=== PATIENT | female | born 1945 | race Caucasian/White ===

== ENCOUNTER 2019-02-20 14:24 | Outpatient (CLI) | payer MEDICARE, OTHER ==
--- NOTE | 2019-02-25 13:36 | Mammography Report ---
Reason: ROUTINE MAMMO Procedure Date: 02/20/2019 Accession Number: [id number] / [id number] Procedure: LAUREL - Screening Mammo w/Jose CPT Code: Final Report FULL RESULT: EXAM: Screening Mammo w/Jose DATE: 02/20/2019 3:12 PM CLINICAL HISTORY: Routine screening. Prior benign left breast biopsy twice. TECHNIQUE: (B) - Bilateral CC and MLO views were obtained. COMPARISON: 07/03/2017, 10/01/2015, 04/23/2014, 04/16/2013. PARENCHYMAL PATTERN: (A) - The breasts demonstrate scattered fibroglandular densities bilaterally. FINDINGS: No significant interval change. Stable nipple retraction left breast. There are no suspicious masses, calcifications, or areas of distortion. IMPRESSION: Negative examination. BI-RADS category 1. RECOMMENDATION: (ANNUAL) - Recommend routine annual screening mammography. BI-RADS CATEGORY: (1) - Negative. STANDARD QUALIFYING STATEMENTS: 1. This examination was not reviewed with the aid of Computer-Aided Detection (CAD). 2. A negative or benign imaging report should not preclude biopsy if clinically suspicious findings are present. 3. Dense breasts may obscure an underlying neoplasm. 4. This examination was reviewed with the aid of 3D breast imaging (tomosynthesis).
== END 2019-02-20 14:25 | disposition home or self-care (01) ==
LOC: DI 14:24
DX: Z12.31 Encounter for screening mammogram for malignant neoplasm of breast (principal)
CPT/HCPCS: 77063; 77067

== ENCOUNTER 2019-12-18 15:19 | Outpatient (CLI) | payer MEDICARE, OTHER ==
--- NOTE | 2019-12-18 16:21 | DEXA Report ---
PROCEDURE: Dexa Spine and/or Hip INDICATIONS: BONE DENSITY TECHNIQUE: Dual energy x-ray absorptiometry (DXA) was performed on a BumpTop System. Regions measur ed are the AP Spine, femoral neck, and if needed forearm. COMPARISON: None. FINDINGS: Lumbar Spine: Bone Mineral Density 0.989 g/cm/cm,T score -1.6, osteopenia Left Hip: Bone Mineral Density 0.781 g/cm/cm,T score -1.8, osteopenia Left Femoral Neck: Bone Mineral Density 0.702 g/cm/cm, T score -2.4, osteopenia (T score greater or equal to -1.0: NORMAL) (T score from -1.1 to -2.4: OSTEOPENIA) (T score less than or equal to -2.5 to: OSTEOPOROSIS) Impression: Osteopenia Patients with diagnosis of osteoporosis or osteopenia should have regular bone mineral density assess ment. For those eligible for Medicare, routine testing is allowed once every 2 years. Testing frequ ency can be increased for patients who have rapidly progressing disease or for those who are receivin g medical therapy to restore bone mass. Reviewed by: Maryjane Chowdhury MD, PhD on 12/18/2019 4:19 PM PDT Approved by: Maryjane Chowdhury MD, PhD on 12/18/2019 4:19 PM PDT Station ID: [id number]
== END 2019-12-18 15:20 | disposition home or self-care (01) ==
LOC: DI 15:19
PROVIDERS: ATTEND Physician Assistant
DX: M85.89 Other specified disorders of bone density and structure, multiple sites (principal)
CPT/HCPCS: 77080

== ENCOUNTER 2020-02-04 16:57 | Outpatient (CLI) | payer MEDICARE, OTHER ==
--- NOTE | 2020-02-04 18:07 | XRAY Report ---
PROCEDURE: Cervical Spine 2 View INDICATIONS: NECK PAIN TECHNIQUE: 4 view(s) of the cervical spine were acquired. COMPARISON: None. FINDINGS: Bones: No fractures or dislocations to the T1 level. Moderate degenerative change in the cervical s pine most pronounced at C5-C6 where there is loss of intervertebral disc space height, endplate scler osis, and posterior disc osteophyte complex. The lateral masses of C1 appear intact on the odontoid v iew. No suspicious bony lesions. Soft tissues: No prevertebral soft tissue swelling. IMPRESSION: Moderate degenerative change in the cervical spine most pronounced at C5-C6. Small posterior disc ost eophyte complex. If clinically indicated consider MRI cervical spine for further evaluation. Reviewed by: Kan Strickland MD on 02/04/2020 6:06 PM [facility] Approved by: Kan Strickland MD on 02/04/2020 6:06 PM [facility] Station ID: [id number]
== END 2020-02-04 16:58 | disposition home or self-care (01) ==
LOC: DI.S 16:57
PROVIDERS: ATTEND Nurse Practitioner Family
DX: M50.322 Other cervical disc degeneration at C5-C6 level (principal)
CPT/HCPCS: 72040

== ENCOUNTER 2020-02-06 12:28 | Outpatient (CLI) | payer MEDICARE, OTHER ==
--- NOTE | 2020-02-06 13:21 | CT Report ---
PROCEDURE: CERVICAL SPINE WO INDICATIONS: CERVICALGIA TECHNIQUE: Noncontrast 3 mm thick sections acquired from the skull base to the T4 level. Sagittal and coronal r eformats were then constructed. For radiation dose reduction, the following was used: automated exp osure control, adjustment of mA and/or kV according to patient size. COMPARISON: Cervical spine radiograph dated 02/04/2020. FINDINGS: Image quality: Excellent. Bones: Grade 1 anterolisthesis of C4 on C5 is seen. Straightening and mild reversal of normal cervic al lordosis is also noted. No fractures or dislocations. Degenerative endplate changes and bilateral facet hypertrophic changes are noted at C4-5, C5-6 and C6-7 levels. There is suggestion of broad-bas ed disc bulge at C4-5 and C5-6 levels causing mild central canal stenosis, no significant neural fora arti narrowing. Visualized superior ribs are intact. Soft tissues: Prevertebral soft tissues are normal in thickness. No paravertebral hematomas. No ap ical pneumothoraces. IMPRESSION: 1. No cervical spine fracture or dislocation. Grade 1 anterolisthesis of C4 on C5. 2. Degenerative disc bulge and bilateral facet hypertrophic changes at C4-5 to C6-7 levels causing mi ld central canal stenosis, no significant neural foraminal narrowing. Reviewed by: Stanton Barnes MD on 02/06/2020 1:19 PM PST Approved by: Stanton Barnes MD on 02/06/2020 1:19 PM PST Station ID: [id number]
== END 2020-02-06 12:29 | disposition home or self-care (01) ==
LOC: DI 12:28
PROVIDERS: ATTEND Nurse Practitioner Family
DX: M43.12 Spondylolisthesis, cervical region (principal); M47.812 Spondylosis without myelopathy or radiculopathy, cervical region; M50.321 Other cervical disc degeneration at C4-C5 level; M48.02 Spinal stenosis, cervical region
CPT/HCPCS: 72125

== ENCOUNTER 2020-04-06 10:01 | Outpatient (CLI) | payer MEDICARE, OTHER ==
--- NOTE | 2020-04-06 10:37 | XRAY Report ---
PROCEDURE: Wrist 4 View LT INDICATIONS: PAIN IN LEFT WRIST TECHNIQUE: 4 views of the wrist were acquired. COMPARISON: None FINDINGS: Bones: Markedly comminuted, impacted distal radius fracture with mild displacement, involving the art icular surface. Ulnar styloid avulsion. 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 No suspicious bony lesions. Scaphoid view: Scaphoid intact. Soft tissues: No suspicious soft tissue calcifications. IMPRESSION: Markedly comminuted, impacted distal radius fracture with mild displacement, involving the articular surface. Associated ulnar styloid avulsion. Reviewed by: Aldair Adams MD on 04/06/2020 10:36 AM [facility] Approved by: Aldair Adams MD on 04/06/2020 10:36 AM PST Station ID: [id number]
== END 2020-04-06 23:59 | disposition home or self-care (01) ==
LOC: DI.S 10:01
PROVIDERS: ATTEND Physician Assistant
DX: S52.592A Other fractures of lower end of left radius, initial encounter for closed fracture (principal)

== ENCOUNTER 2020-05-20 07:00 | Outpatient (CLI) | payer MEDICARE, OTHER ==
--- NOTE | 2020-05-20 13:54 | XRAY Report ---
PROCEDURE: Wrist 3 View LT INDICATIONS: LEFT WRIST COLLES FRACTURE TECHNIQUE: 3 views of the wrist were acquired. COMPARISON: 04/06/2020 x-ray examination FINDINGS: Bones: No change in comminuted impacted distal radial fracture which demonstrates mild posterior ang ulation. Mildly displaced ulnar styloid fracture is present, as before.. No suspicious bony lesions. Scaphoid view: Not requested Soft tissues: No suspicious soft tissue calcifications. IMPRESSION: No change in distal radial and ulnar fractures. Reviewed by: Charbel Ray MD on 05/20/2020 1:53 PM PST Approved by: Charbel Ray MD on 05/20/2020 1:53 PM [facility] Station ID: [id number]
== END 2020-05-20 23:59 | disposition home or self-care (01) ==
LOC: DI.N 07:00
PROVIDERS: ATTEND Orthopaedic Surgery
DX: S52.532A Colles' fracture of left radius, initial encounter for closed fracture (principal)

== ENCOUNTER 2020-11-29 10:46 | Outpatient (CLI) | payer MEDICARE, OTHER ==
[2020-11-29 11:21] LABS: BASOPHILS % (AUTO) 0.2 %; EOSINOPHILS # (AUTO) 0.1 10^3/uL (0.0-0.7); EOSINOPHILS % (AUTO) 1.1 %; HCT - HEMATOCRIT 45.7 % (37.0-47.0); HGB - HEMOGLOBIN 14.8 g/dL (12.0-16.0); MEAN CORPUSCULAR HEMOGLOBIN 29.3 pg (27.0-31.0); MEAN CORPUSCULAR HGB CONC 32.4 g/dL (32.0-36.0); MEAN CORPUSCULAR VOLUME 90.5 fL (81.0-99.0); MEAN PLATELET VOLUME 11.6 fL (7.9-10.8); MONOCYTES # (AUTO) 0.8 10^3/uL (0.0-1.0); MONOCYTES % (AUTO) 8.4 %; NEUTROPHILS % (AUTO) 45.1 %; PLT - PLATELET COUNT 237 10^3/uL (130-450); RED BLOOD COUNT 5.05 10^6/uL (4.20-5.40); RED CELL DISTRIBUTION WIDTH 12.6 % (12.0-15.0)
[2020-11-29 11:51] LABS: ALBUMIN 4.4 g/dL (3.2-5.5); ALBUMIN/GLOBULIN RATIO 1.5 (1.0-2.2); ALKALINE PHOSPHATASE 50 IU/L (42-121); ALT ALANINE AMINOTRANSFERASE 16 IU/L (10-60); AST ASPARTATE AMINOTRANSFERASE 17 IU/L (10-42); BILIRUBIN,TOTAL 0.4 mg/dL (0.2-1.0); BUN - BLOOD UREA NITROGEN 11 mg/dL (6-20); CALCIUM 9.4 mg/dL (8.5-10.3); CARBON DIOXIDE - CO2 28 mmol/L (21-32); CHLORIDE 103 mmol/L (101-111); CHOL/HDL RATIO 4.6 (<4.4); CHOLESTEROL 250 mg/dL; CREATININE 0.7 mg/dL (0.4-1.0); GFR - MDRD 82 (>89); GLUCOSE 98 mg/dL (70-100); HDL CHOLESTEROL 54 mg/dL; LDL CHOLESTEROL,CALCULATED 170 mg/dL; LDL/HDL RATIO 3.1 (<4.4); POTASSIUM 4.3 mmol/L (3.5-5.0); SODIUM 139 mmol/L (135-145); TOTAL PROTEIN 7.3 g/dL (6.7-8.2); TRIGLYCERIDES 132 mg/dL; VLDL CHOLESTEROL 26 mg/dL
--- NOTE | 2020-12-01 15:04 | Mammography Report ---
BILATERAL DIGITAL SCREENING MAMMOGRAM 3D/2D: 11/29/2020 CLINICAL: Routine screening. Comparison is made to exams dated: 02/20/2019 mammogram - , 07/03/2017 ma mmogram, 04/03/2012 ultrasound, 04/03/2012 mammogram, 03/29/2012 mammogram, and 01/18/2011 ultrasound - [facility]. The tissue of both breasts is predominantly fatty. There is an asymmetry with fine calcifications in the right breast middle depth inferior region seen on the mediolateral oblique view only. No other significant masses, calcifications, or other findings are seen in either breast. IMPRESSION: INCOMPLETE: NEEDS ADDITIONAL IMAGING EVALUATION The asymmetry in the right breast is indeterminate. Additional views with possible ultrasound are re commended. This exam was interpreted at Station ID: [id number]. NOTE: For mammograms, a report in lay terms will be sent to the patient. Approximately 15% of breast malignancies will not be visualized mammographically. In the management of a palpable breast mass, a negative mammogram must not discourage biopsy of a clinically suspicious lesion. Electronically Signed By: Robert Mackey M.D., jr/ivette:11/30/2020 08:20:52 ACR BI-RADS Category 0: Incomplete 3340F PARENCHYMAL PATTERN: (F) - The breast(s) demonstrate(s) diffuse fatty replacement. BI-RADS CATEGORY: (0) - 0 Mammo and US [id number] Immediate follow-up LATERALITY: (B)
== END 2020-11-29 10:47 | disposition home or self-care (01) ==
LOC: DI 10:46
PROVIDERS: ATTEND Internal Medicine
DX: Z12.31 Encounter for screening mammogram for malignant neoplasm of breast (principal); R92.8 Other abnormal and inconclusive findings on diagnostic imaging of breast
CPT/HCPCS: 36415; 80053; 80061; 83721; 84443; 85025

== ENCOUNTER 2020-12-29 10:21 | Outpatient (CLI) | payer MEDICARE, OTHER ==
--- NOTE | 2020-12-30 09:57 | Ultrasound Report ---
LIMITED ULTRASOUND OF RIGHT BREAST: 12/29/2020 CLINICAL: Patient returns today to evaluate a focal asymmetry in the left breast. Patient returns tod ay to evaluate a focal asymmetry in the right breast. Comparison is made to exams dated: 12/29/2020 mammogram, 11/29/2020 mammogram, 02/20/2019 mammogram - [facility], 07/03/2017 mammogram, 04/03/2012 ultrasound, and 04/03/2012 mammogram - [facility]. Color flow and real-time ultrasound of the right breast 6 o'clock region were performed. Lynch scale images of the real-time examination were reviewed. No abnormality which corresponds with the mammographic abnormality is seen. IMPRESSION: NEGATIVE There is no sonographic evidence of malignancy. There is no abnormality seen in the right breast to correspond with the screening mammography finding at 6 o'clock. A 1 year screening mammogram is recommended. This exam was interpreted at Station ID: [id number]. Electronically Signed By: Lalo Lou acr/:12/29/2020 11:55:03 Ultrasound BI-RADS: 1 Negative BI-RADS CATEGORY: (1) - 1 RECOMMENDATION: (ANNUAL) - Recommend routine annual screening mammography. [id number] 1 year screening LATERALITY: (B)
--- NOTE | 2020-12-30 09:57 | Mammography Report ---
UNILATERAL RIGHT DIGITAL DIAGNOSTIC MAMMOGRAM 3D/2D: 12/29/2020 CLINICAL: Patient returns for magnification views of microcalcifications in the right breast. Comparison is made to exams dated: 11/29/2020 mammogram, 02/20/2019 mammogram - [facility], 07/03/2017 mammogram, 04/03/2012 ultrasound, 04/03/2012 mammogram, and 03/29/2012 mammogram - [facility]. The tissue of right breast is predominantly fatty. There is an asymmetry in the right breast middle depth inferior region seen on the mediolateral obliq ue view only. This is not seen in additional views. This is less prominent. No other significant masses or calcifications are seen in the breast. IMPRESSION: INCOMPLETE: NEEDS ADDITIONAL IMAGING EVALUATION The asymmetry in the right breast is indeterminate. An ultrasound is recommended. This exam was interpreted at Station ID: [id number]. NOTE: For mammograms, a report in lay terms will be sent to the patient. Approximately 15% of breast malignancies will not be visualized mammographically. In the management of a palpable breast mass, a negative mammogram must not discourage biopsy of a clinically suspicious lesion. Electronically Signed By: Lalo Lou acr/penrad:12/29/2020 11:53:57 ACR BI-RADS Category 0: Incomplete 3340F PARENCHYMAL PATTERN: (F) - The breast(s) demonstrate(s) diffuse fatty replacement. BI-RADS CATEGORY: (0) - 0 Ultrasound [id number] Immediate follow-up LATERALITY: (R)
== END 2020-12-29 10:22 | disposition home or self-care (01) ==
LOC: DI 10:21
PROVIDERS: ATTEND Internal Medicine
DX: R92.8 Other abnormal and inconclusive findings on diagnostic imaging of breast (principal)

== ENCOUNTER 2021-11-22 10:20 | Outpatient (CLI) | payer MEDICARE, OTHER ==
[2021-11-22 11:10] VITALS: BP 134/70
--- NOTE | 2021-11-22 11:10 | SLEEP CARE CONSULTATION ---
Information from patient questionnaire entered by Kelly Miles MA. I have reviewed and concur with the information entered by Kelly Miles MA. This document represents the service I personally performed and the decisions made by me, Orquidea Belle ARNP. History of Present Illness Service Date and Time: 11/22/2021 1020 Reason for Visit: New patient Chief Complaint: reports: Unrefreshed sleep, Snoring, Observed pauses in breathing Date of Onset: snored for years, daughter noted pauses recently Usual bedtime: 9 TO 10PM Time it takes to fall asleep: SOMETIMES QUICKLY, SOMETIMES HOURS Snores at night: Yes Observed to quit breathing while asleep: Yes Number of times waking at night: 3 Reasons for waking at night: reports: Bathroom. denies: Choking, Snoring, Gasping for air Toss, Turn, or Twitch while sleeping: Yes Recalls having dreams: Yes Usually gets out of bed at: 6 TO 7 AM Feels refreshed in the morning: No Morning headache: No Sleepy or fatigued during the day: Yes Ever fallen asleep while driving: No Takes day naps: No Prior sleep studies: No Additional HPI information: I had the pleasure of seeing MICHELE BADILLO today regarding the possibility of her having a sleep disorder. Her current complaints are snoring and observed pauses in breathing. She states that she has snored for years but until recently she did not know she had some pauses in breathing. She shared a room with her daughter who was concerned when she notice her mother stop breathing as well as snoring during the night. She states she is not normally rested in the morning but she does not feel this is out of the ordinary for her age. She has a history of hypertension and osteoporosis. 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 Patient is / and lives in . Have you smoked in the past 12 months: No Cigarettes per day (20/pack): 0 Years of smokin Smoking Pack Years: 0 Alcohol use: No Caffeine use: Yes Caffeine amount and frequency: 2-4 a day 12 oz tami Jones Family History Family history of sleep disordered breathing: No (unknown) Allergies and Home Medications Drug allergies reviewed: Yes (NKDA) Home medication list reviewed: Yes Allergy and home medication list: Medications: Lisinopril 10 mg bid Alendronate 70 mg every week Hair, skin, nail w/ Biotin bid Calcium Citrate Magnesium and Zinc Fish oil Centrum Silver Glucosamine 1500 mg with MSN 1500 D3 Turmeric Vitamin C Review of Systems Weight gain over past 5 years: 20 Cardiovascular: reports: high blood pressure Respiratory: reports: shortness of breath Gastrointestinal: reports: heartburn, diarrhea Urinary: reports: urgency Neurological: denies: headaches, head trauma Psychiatric: denies: anxiety, depression Ear/Nose/Throat: reports: wisdom teeth removed. denies: tonsillectomy Endocrine: reports: sluggishness. denies: thyroid disease Musculoskeletal: reports: joint pain Immunologic: denies: allergies to food or environment Physical Exam Vital signs obtained and entered by: STEFAN Blood Pressure: 134/70 Cuff size: regular Heart Rate: 78 O2 Saturation: 96 Height: 5 ft 3.5 in Weight: 182 lb Body Mass Index: 31.7 BMI Classification: Obese Neck circumference: 15 Mouth and throat: narrow oropharynx Soft palate: long Hard palate: normal Uvula: normal Uvula visualization: 25% Mallampati Class III Tongue: enlarged in size with teeth fink on lateral edges Tonsils: small Neck: normal w/o lymphadenopathy or thyromegaly Heart: regular rate and rhythm Lungs: clear bilaterally Impression and Plan 1. Suspected Obstructive Sleep Apnea-Hypopnea Syndrome, as suggested by a history of loud and irregular snoring, observed cessation of breath while asleep and unrefreshed sleep. Narrow oropharynx and obesity are common predisposing factors for obstructive sleep apnea-hypopnea syndrome. I recommend proceeding to polysomnography to confirm the diagnosis and to assess severity. If the patient has significant sleep disordered breathing, a manual CPAP titration study will also be performed to find the optimal treatment pressure. I informed the patient of what the sleep studies involve and after some discussion, obtained agreement to proceed. The pathophysiology of obstructive sleep apnea-hypopnea syndrome was discussed with the patient and health risks of cardiovascular and cerebrovascular disease if not treated. 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 Patient agreed to plan. * Schedule polysomnography * Avoid long distance driving or driving when feeling sleepy. * Avoid alcohol, sedative and muscle relaxant around bedtime. * Attempt to lose weight. * Review instructions provided by trained office staff on how to prepare for the sleep study. * Return for follow-up after sleep study completed. Counseling Topics: Weight loss health impact Visit Type: In Office Time Spent with Patient (minutes): 31 Provider Statement: I spent 100% of the Face to Face Visit with the patient with greater than 50% spent counseling the patient and coordination of care.
== END 2021-11-22 10:21 | disposition home or self-care (01) ==
LOC: SC 10:20
PROVIDERS: ATTEND Nurse Practitioner Family
DX: G47.8 Other sleep disorders (principal); R06.83 Snoring; R06.81 Apnea, not elsewhere classified; I10 Essential (primary) hypertension; E66.9 Obesity, unspecified; Z68.31 Body mass index [BMI] 31.0-31.9, adult
CPT/HCPCS: 99203; G0463; 99212

== ENCOUNTER 2021-12-04 20:23 | Outpatient (CLI) | payer MEDICARE, OTHER | END 2021-12-04 20:24 | disposition home or self-care (01) | LOC: SC 20:23 | PROVIDERS: ATTEND Nurse Practitioner Family | DX: G47.33 Obstructive sleep apnea (adult) (pediatric) (principal) | CPT/HCPCS: 95810 ==

== ENCOUNTER 2021-12-08 12:40 | Outpatient (CLI) | payer MEDICARE, OTHER ==
--- NOTE | 2021-12-08 13:22 | SLEEP CARE CONSULTATION ---
Information from patient questionnaire entered by Tonny Fletcher. I have reviewed and concur with the information entered by Tonny Fletcher. This document represents the service I personally performed and the decisions made by me, Orquidea Belle ARNP. History of Present Illness Service Date and Time: 12/08/2021 1240 Initial Russell Sleepiness Scale score: 4 (11/2021) Current Russell Sleepiness Scale score: 2 (12/08/21) Additional HPI information: MICHELE BADILLO returns for follow up and results of the recently performed polysomnography. I explained the pathophysiology behind obstructive sleep apnea. We then spent quite a bit of time discussing different treatment options. For mild obstructive sleep apnea, surgery and oral appliance are alternatives to nasal CPAP therapy but in moderate or severe cases, nasal CPAP is the most effective and reliable treatment. I reviewed the impact of weight changes on sleep apnea and strongly recommended losing weight. After some discussion, the patient opted to go with the nasal CPAP therapy. Nasal autoCPAP set at 4-15 cmH20 will be ordered with rationale explained. A manual titration study will be ordered if unable to find optimal pressure with office adjustments. I explained how CPAP machine works and what to expect when using the machine. Using CPAP every night in order to get used to it was emphasized. Patient advised to put CPAP mask on before getting into bed so as not to fall asleep without CPAP. To assist acclimation to CPAP use, it could also be used for a short time during day while reading or watching TV. The patient was instructed to call the CPAP supplier to discuss any mechanical problem that may occur. If the mask given is uncomfortable or is difficult to keep on through the night even with adjustment, contact the CPAP supplier as many will replace with anothe r mask style if notified before 30 days. If snoring or perceives is not getting enough air or too much air from the machine, notify this office. Patient does not drink alcohol. Patient was cautioned about risks of drowsy driving until sleepiness symptoms resolve. Patient denies drowsy driving. Sleep Study - Results Type of Sleep Study: Polysomnography (DONE ON 12/04/21) Prior sleep studies: No Polysomnography/Home Sleep Study results: IMPRESSION: The quality of the study is good. The patient had slightly reduced sleep efficiency due to a prolonged awakening in the middle of the night. The sleep architecture was abnormal for sleep fragmentation and lack of REM and slow wave sleep (N3). Respiratory monitoring showed severe obstructive sleep apnea-hypopnea (AHI = 43.2) associated with frequent arousals, oxyhemoglobin desaturation and mild hypoxia (leticia oxygen saturation of 81%). The respiratory events occurred independently of sleep stage and body position (supine AHI = 86.4; non-supine = 32.01). Snore was moderate in intensity. There was no significant periodic leg movement of sleep. Cardiac rhythm was normal sinus rhythm without significant arrhythmia. No abnormal behavior (parasomnia) observed during the night. Allergies and Home Medications Home medication list reviewed: Yes (no changes) Review of Systems Review of systems same as previous: Yes (no changes) Physical Exam Vital signs obtained and entered by: SEBASTIAN CHAVEZ Blood Pressure: 142/68 (left arm ) Cuff size: regular Heart Rate: 68 O2 Saturation: 97 Height: 5 ft 3.5 in Weight: 181 lb Body Mass Index: 31.5 BMI Classification: Obese Impression and Plan 1. Obstructive Sleep Apnea-Hypopnea Syndrome, severe, with lowest oxygen saturation of 81%. Obviously this is the cause of the patients symptoms of unrefreshed sleep, and excessive daytime sleepiness. Positive pressure therapy could benefit hypertension. As mentioned above, the patient will be started on nasal autoCPAP therapy with pressure set at 4-15 cmH2O. A manual titration study will be completed if unable to find optimal treatment pressure with office adjustments. Compliance guidelines also reviewed. A copy of compliance guidelines will be given for reference at check out. Because the apnea is more severe supine, I instructed to avoid sleeping supine using pillow positioning until able to start CPAP use. 2. Hypoxemia, mild, with a leticia oxygen saturation of 81% and 31.3 minutes spent under 90%. Her baseline oxygen saturation was normal with an average oxygen saturation of 92%. * Nasal auto CPAP therapy, pressure at 4-15 cm H2O. * Attempt to lose weight. * Avoid alcohol consumption near bedtime. * Avoid supine sleep until using CPAP. * The patient is again cautioned about driving until sleepiness completely resolves. * Return one month after CPAP obtained. I will assess response to therapy and compliance at that time. Counseling Topics: Weight loss health impact Visit Type: In Office Time Spent with Patient (minutes): 22 Provider Statement: I spent 100% of the Face to Face Visit with the patient with greater than 50% spent counseling the patient and coordination of care.
[2021-12-08 13:23] VITALS: BP 142/68
== END 2021-12-08 12:41 | disposition home or self-care (01) ==
LOC: SC 12:40
PROVIDERS: ATTEND Nurse Practitioner Family
DX: G47.33 Obstructive sleep apnea (adult) (pediatric) (principal); R09.02 Hypoxemia; E66.9 Obesity, unspecified; Z68.31 Body mass index [BMI] 31.0-31.9, adult
CPT/HCPCS: 99213; G0463; 99212

== ENCOUNTER 2022-02-21 10:43 | Outpatient (CLI) | payer MEDICARE, OTHER ==
[2022-02-21 19:04] VITALS: BP 112/64
--- NOTE | 2022-02-21 19:04 | SLEEP CARE CONSULTATION ---
Information from patient questionnaire entered by Bert Cintron. I have reviewed and concur with the information entered by Bert Cintron. This document represents the service I personally performed and the decisions made by me, Orquidea Belle ARNP. History of Present Illness Service Date and Time: 02/21/2022 1043 Previous diagnosis: Severe, Obstructive Sleep Apnea-Hypopnea Syndrome AHI: 43.2 (in 2021) Reason for follow up: first compliance Equipment type: CPAP (RESMED) Equipment obtained from: [employer] (got initial supplies) Mask style: Nasal Mask brand: Respironics (Dreamwear) Backup mask available: No (will keep old mask when replaced) Last cushion change: 18 February Prior sleep studies: No Type of Sleep Study: Polysomnography (DONE ON 12/04/21) HPI additional information: MICHELE BADILLO was diagnosed to have severe, AHI 43.2, obstructive sleep apnea- hypopnea syndrome and returned today for CPAP therapy first compliance follow- up. Sleep Study - Results Type of Sleep Study: Polysomnography (DONE ON 12/04/21) Prior sleep studies: No CPAP Compliance Data - Data Reviewed with Patient Average duration of nightly device use: 7 HRS 20 MIN Compliance rate %: 88 (-02/20/22; 46/51 days used) Current pressure setting (cmH2O): 4-15 (median 8.1, avg 11.4, max 12.6) Average residual AHI: 3.4 Central apnea: 0.9 Obstructive apnea: 1.7 Hypopnea: 0.6 Average large leak: 2.6 L/min Subjective Missed days of use due to: reports: other (power outage) Patient concerns: reports: mask leak noise, dry mouth, nose, throat. denies: aerophagia, mask discomfort, air blowing in eyes, condensation in mask/hose, nasal congestion, epistaxis Observed to snore while using device: No (lives alone) Current pressure setting perceived as: comfortable On therapy, patient: reports: other (daytime tiredness better). denies: drowsiness while driving Initial [place] Sleepiness Scale score: 4 (11/2021) Current [place] Sleepiness Scale score: 5 (02/21/22) Allergies and Home Medications Drug allergies reviewed: Yes (NKDA) Home medication list reviewed: Yes (no changes) Review of Systems Review of systems same as previous: Yes (no changes) Physical Exam Vital signs obtained and entered by: BERT Salvador MA Blood Pressure: 112/64 (LEFT ARM) Cuff size: regular Heart Rate: 80 O2 Saturation: 96 Height: 5 ft 3.5 in Weight: 183 lb 9.6 oz Body Mass Index: 32.0 BMI Classification: Obese Impression and Plan 1. Obstructive Sleep Apnea-Hypopnea Syndrome, severe, with good treatment compliance and good apnea control. On CPAP therapy, the patient feels that she is experiencing less daytime sleepiness. The patients pressure will be changed to autoCPAP 8-12 cmH20 to reflect pressures being used. Patient advised to contact me if pressure change is uncomfortable so that it can be adjusted. Goals for apnea control discussed. Patient's apnea severity and rationale for treatment to reduce apnea, improve sleep quality and reduce cardiovascular and cerebrovascular events was reviewed. I also reviewed the benefit of consistent device use of CPAP for hypertension. 2. Obesity, unspecified. Currently patients BMI is 32.0. Obesity increases the risk of apnea, CPAP pressure requirements and overall health risks especially cardiovascular and diabetes. Thus patient is advised to lose weight. * Change auto CPAP pressure to 8-12 cmH2O * Notify me if snoring with mask or feeling that the pressure is too much or too little * Attempt to lose weight * Call this office if any problems using CPAP * Return for follow up in 1-2 months, or sooner if concerns arise Counseling Topics: Spare mask, Weight loss health impact Visit Type: In Office Time Spent with Patient (minutes): 22 Provider Statement: I spent 100% of the Face to Face Visit with the patient with greater than 50% spent counseling the patient and coordination of care.
== END 2022-02-21 10:44 | disposition home or self-care (01) ==
LOC: SC 10:43
PROVIDERS: ATTEND Nurse Practitioner Family
DX: G47.33 Obstructive sleep apnea (adult) (pediatric) (principal); E66.9 Obesity, unspecified; Z68.32 Body mass index [BMI] 32.0-32.9, adult
CPT/HCPCS: 99213; G0463; 99212

== ENCOUNTER 2022-04-05 10:17 | Outpatient (CLI) | payer MEDICARE, OTHER ==
[2022-04-05 10:46] VITALS: BP 138/76
--- NOTE | 2022-04-05 10:46 | SLEEP CARE CONSULTATION ---
Information from patient questionnaire entered by Bert Cintron. I have reviewed and concur with the information entered by Bert Cintron. This document represents the service I personally performed and the decisions made by me, Orquidea Belle ARNP. History of Present Illness Service Date and Time: 04/05/2022 1017 Previous diagnosis: Severe, Obstructive Sleep Apnea-Hypopnea Syndrome AHI: 43.2 (in 2021) Reason for follow up: other (1-2 MONTH F/U ) Equipment type: CPAP (RESMED Airsense 10 s/u 01/02/2022; SD CARD NEEDED FOR DOWNLOAD AND CHANGES) Equipment obtained from: [employer] (getting supplies) Mask style: Nasal Backup mask available: No (will keep old mask when replaced) Last cushion change: every 2 weeks Prior sleep studies: Yes Type of Sleep Study: Polysomnography (DONE ON 12/04/21) HPI additional information: MICHELE BADILLO was diagnosed to have severe, AHI 43.2, obstructive sleep apnea- hypopnea syndrome and returned today for CPAP therapy 1-2 month follow-up. Sleep Study - Results Type of Sleep Study: Polysomnography (DONE ON 12/04/21) Prior sleep studies: No CPAP Compliance Data - Data Reviewed with Patient Average duration of nightly device use: 7 hours 58 minutes Compliance rate %: 97 (58/60 days used) Current pressure setting (cmH2O): 8-12 Average residual AHI: 3.4 Central apnea: 1.1 Obstructive apnea: 1.8 Subjective Missed days of use due to: reports: other (power outage) Patient concerns: reports: condensation in mask/hose (twice in last 2 months), dry mouth, nose, throat (occasional, 2 times a week). denies: aerophagia, mask discomfort, air blowing in eyes, mask leak noise, nasal congestion, epistaxis Observed to snore while using device: No Current pressure setting perceived as: comfortable On therapy, patient: reports: sleeping better, awakening more refreshed, being more awake and alert during the day, more rested overall. denies: drowsiness while driving Initial [place] Sleepiness Scale score: 4 (11/2021) Current [place] Sleepiness Scale score: 1 (04/05/22) Allergies and Home Medications Drug allergies reviewed: Yes (NKDA) Home medication list reviewed: Yes (no changes) Review of Systems Review of systems same as previous: Yes (no changes) Physical Exam Vital signs obtained and entered by: BERT Salvador MA Blood Pressure: 138/76 (LEFT ARM) Cuff size: regular Heart Rate: 72 O2 Saturation: 98 Height: 5 ft 3.5 in Weight: 188 lb 9.6 oz Weight change since last visit: 5 lb gain Body Mass Index: 32.8 BMI Classification: Obese Impression and Plan 1. Obstructive Sleep Apnea-Hypopnea Syndrome, severe, with good treatment compliance and good apnea control. On CPAP therapy, the patient has better sleep quality and is more rested overall. Patient has significant improvement of their sleep apnea and are satisfied with current CPAP therapy. Patient gets occasional dry mouth and states it is not too bad. She did try to go up on her humidity but then got some condensation in her tubing. She turned back down to 5 on her machine. Oral dryness can be reduced by adjusting humidity setting higher or heated hose lower or by adjusting both settings. Verbal instructions given on how to change humidity and heated hose settings with rationale explaining why to change. Patient advised that chronic oral dryness can affect dental health and advised that there are commercially available products to reduce dryness such as Biotene products and Xylomelts. Patient voiced understanding. Patient's apnea severity and rationale for treatment to reduce apnea, improve sleep quality and reduce cardiovascular and cerebrovascular events was reviewed. I also reviewed the benefit of consistent device use of CPAP for hypertension. 2. Obesity, unspecified. Currently patients BMI is 32.8. Obesity increases the risk of apnea, CPAP pressure requirements and overall health risks especially cardiovascular and diabetes. Thus patient is advised to lose weight. * Continue auto CPAP pressure at 8-12 cmH2O * Notify me if snoring with mask or feeling that the pressure is too much or too little * Attempt to lose weight * Call this office if any problems using CPAP * Return for follow up in 6 months, or sooner if concerns arise Counseling Topics: Spare mask, Weight loss health impact Follow up with Sleep Care in: 6 months Visit Type: In Office Time Spent with Patient (minutes): 14 Provider Statement: I spent 100% of the Face to Face Visit with the patient with greater than 50% spent counseling the patient and coordination of care.
== END 2022-04-05 10:18 | disposition home or self-care (01) ==
LOC: SC 10:17
PROVIDERS: ATTEND Nurse Practitioner Family
DX: G47.33 Obstructive sleep apnea (adult) (pediatric) (principal); E66.9 Obesity, unspecified; Z68.32 Body mass index [BMI] 32.0-32.9, adult
CPT/HCPCS: 99212; G0463

== ENCOUNTER 2022-10-13 15:22 | Outpatient (CLI) | payer MEDICARE, OTHER ==
--- NOTE | 2022-10-13 15:41 | Sleep Patient Instructions ---
Sleep Center Visit Summary - Patient Visit Information Reason for Visit: Seven months followup for PAP therapy - Patient Instructions Additional Instructions: You were here for follow up of CPAP therapy. You will be continued on CPAP therapy with pressure at 8-12 cmH2O. You should follow up with sleep care in 12 months. You may contact us sooner for any questions or concerns. - Clinic Information Contact: [facility] [address] [place] [address] [email or web address] T: [phone]
--- NOTE | 2022-10-13 15:45 | SLEEP CARE CONSULTATION ---
Information from patient questionnaire entered by Bert Cintron. I have reviewed and concur with the information entered by Bert Cintron. This document represents the service I personally performed and the decisions made by me, Orquidea Belle ARNP. History of Present Illness Service Date and Time: 10/13/2022 152 Previous diagnosis: Severe, Obstructive Sleep Apnea-Hypopnea Syndrome AHI: 43.2 (in 2021) Reason for follow up: other (7 MONTH F/U) Equipment type: CPAP (RESMED Airsense 10 s/u 01/02/2022; SD CARD NEEDED FOR DOWNLOAD AND CHANGES) Equipment obtained from: [employer] (getting supplies) Mask style: Nasal Backup mask available: Yes (old mask) Last cushion change: almost a week ago Prior sleep studies: No Type of Sleep Study: Polysomnography (DONE ON 12/04/21) HPI additional information: MICHELE BADILLO was diagnosed to have severe, AHI 43.2, obstructive sleep apnea- hypopnea syndrome and returned today for CPAP therapy seven month follow-up. Sleep Study - Results Type of Sleep Study: Polysomnography (DONE ON 12/04/21) Prior sleep studies: No CPAP Compliance Data - Data Reviewed with Patient Average duration of nightly device use: 7 hours 56 minutes Compliance rate %: 96 (173/180 days used) Current pressure setting (cmH2O): 8-12 Average residual AHI: 3 Central apnea: 1.3 Obstructive apnea: 1.3 Hypopnea: 0.3 Average large leak: 0.4 L/min Subjective Missed days of use due to: reports: travel, other (missing parts when not at home) Patient concerns: reports: dry mouth, nose, throat (about 1/2 the time). denies: aerophagia, mask discomfort, air blowing in eyes, mask leak noise, condensation in mask/hose, nasal congestion, epistaxis Observed to snore while using device: No Current pressure setting perceived as: comfortable On therapy, patient: reports: sleeping better, awakening more refreshed, being more awake and alert during the day, more rested overall. denies: drowsiness while driving Initial [place] Sleepiness Scale score: 4 (11/2021) Current [place] Sleepiness Scale score: 3 (10/13/22) Allergies and Home Medications Known drug allergies: No Drug allergies reviewed: Yes Home medication list reviewed: Yes (no changes) Allergy and home medication list: Allergies No Known Drug Allergies Allergy Review of Systems Review of systems same as previous: Yes (no changes) Physical Exam Vital signs obtained and entered by: BERT Salvador MA Blood Pressure: 122/62 (LEFT ARM) Cuff size: regular Heart Rate: 80 O2 Saturation: 98 Height: 5 ft 3.5 in Weight: 174 lb 3.2 oz Weight change since last visit: 14 lb loss Body Mass Index: 30.4 BMI Classification: Obese Impression and Plan 1. Obstructive Sleep Apnea-Hypopnea Syndrome, severe, with good treatment compliance and good apnea control. On CPAP therapy, the patient has better sleep quality and is more rested overall. Patient has significant improvement of their sleep apnea and is satisfied with current CPAP therapy. She gets a little oral dryness but she states its not all the time. Oral dryness can be reduced by adjusting humidity setting higher or heated hose lower or by adjusting both settings. Verbal instructions given on how to change humidity and heated hose settings with rationale explaining why to change. Patient advised that chronic oral dryness can affect dental health and that there are oral dryness products that can be used to reduce dryness such as Biotene products, Dry mouth rinse or Xylomelts. Patient's apnea severity and rationale for treatment to reduce apnea, improve sleep quality and reduce cardiovascular and cerebrovascular events was reviewed. I also reviewed the benefit of consistent device use of CPAP for hypertension. 2. Obesity, unspecified. Currently patients BMI is 30.4. Obesity increases the risk of apnea, CPAP pressure requirements and overall health risks especially cardiovascular and diabetes. Thus patient is advised to lose weight. * Continue auto CPAP pressure at 8-12 cmH2O * Notify me if snoring with mask or feeling that the pressure is too much or too little * Attempt to lose weight * Call this office if any problems using CPAP * Return for follow up in 1 year, or sooner if concerns arise Counseling Topics: Spare mask, Weight loss health impact Visit Type: In Office Time Spent with Patient (minutes): 15 Provider Statement: I spent 100% of the Face to Face Visit with the patient with greater than 50% spent counseling the patient and coordination of care.
[2022-10-13 15:46] VITALS: BP 122/62
== END 2022-10-13 15:23 | disposition home or self-care (01) ==
LOC: SC 15:22
PROVIDERS: ATTEND Nurse Practitioner Family
DX: G47.33 Obstructive sleep apnea (adult) (pediatric) (principal); E66.9 Obesity, unspecified; Z68.30 Body mass index [BMI] 30.0-30.9, adult
CPT/HCPCS: 99212; G0463

== ENCOUNTER 2023-05-04 09:28 | Outpatient (CLI) | payer MEDICARE, OTHER ==
--- NOTE | 2023-05-04 12:35 | DEXA Report ---
PROCEDURE: Dexa Spine and/or Hip INDICATIONS: OSTEOPENIA TECHNIQUE: Dual energy x-ray absorptiometry (DXA) was performed on a [employer] System. Regions measur ed are the AP Spine, femoral neck, and if needed forearm. COMPARISON: DEXA on December 18, 2019 FINDINGS: Lumbar Spine: Bone Mineral Density: 1.083 g/cm/cm,T score: -0.8. Since the most recent prior study, there has been a statistically significant increase in bone mineral density by 9.5 percent. Left Femoral Neck: Bone Mineral Density: 0.756 g/cm/cm, T score: -2. Left Hip: Bone Mineral Density: 0.813 g/cm/cm,T score: -1.5. Since the most recent prior study, there has been a statistically significant increase in bone mineral density by 4.1 percent. (T score greater or equal to -1.0: NORMAL) (T score from -1.1 to -2.4: OSTEOPENIA) (T score less than or equal to -2.5 to: OSTEOPOROSIS) Impression: By WHO criteria, this patient has low bone density (osteopenia). Interval statistical increase in bone mineral density of the lumbar spine. Interval statistical incre ase in bone mineral density of the hip. Patients with diagnosis of osteoporosis or osteopenia should have regular bone mineral density assess ment. For those eligible for Medicare, routine testing is allowed once every 2 years. Testing frequ ency can be increased for patients who have rapidly progressing disease or for those who are receivin g medical therapy to restore bone mass. Reviewed by: Buck Polk MD on 05/04/2023 12:34 PM PST Approved by: Buck Polk MD on 05/04/2023 12:34 PM PST Station ID: [id number]
== END 2023-05-04 09:29 | disposition home or self-care (01) ==
LOC: DI 09:28
PROVIDERS: ATTEND Internal Medicine
DX: M85.89 Other specified disorders of bone density and structure, multiple sites (principal); Z78.0 Asymptomatic menopausal state

== ENCOUNTER 2023-05-04 09:29 | Outpatient (CLI) | payer MEDICARE, OTHER ==
--- NOTE | 2023-05-07 08:34 | Mammography Report ---
BILATERAL DIGITAL SCREENING MAMMOGRAM 3D/2D: 05/04/2023 CLINICAL: Routine screening. Comparison is made to exams dated: 01/24/2022 mammogram, 12/29/2020 mammogram, 11/29/2020 mammogram, and 02/20/2019 mammogram - [facility]. Both breasts are heterogeneously dense, which may obscure small masses (category c / 51-75% glandular tissue). No significant masses, calcifications, or other findings are seen in either breast. There has been no significant interval change. IMPRESSION: NEGATIVE There is no mammographic evidence of malignancy. A 1 year screening mammogram is recommended. Based on the Tyrer Cuzick model (a risk assessment model) the patient's lifetime risk is 3.4% and her 10 year risk is 0.0%. According to the ACR, ACS, and NCCN guidelines, an annual breast MRI exam donita g with mammogram is recommended if the patient's lifetime risk is 20% or greater. This exam was interpreted at Station ID: [id number]. NOTE: For mammograms, a report in lay terms will be sent to the patient. Approximately 15% of breast malignancies will not be visualized mammographically. In the management of a palpable breast mass, a negative mammogram must not discourage biopsy of a clinically suspicious lesion. Electronically Signed By: Kan wright/ivette:05/04/2023 20:58:26 letter sent: No_Letter ACR BI-RADS Category 1: Negative 3341F PARENCHYMAL PATTERN: (D) - The breast(s) demonstrate(s) heterogeneously dense fibroglandular latoya bhatia. BI-RADS CATEGORY: (1) - 1 Mammogram [id number] 1 year screening LATERALITY: (B)
== END 2023-05-04 09:30 | disposition home or self-care (01) ==
LOC: DI 09:29
PROVIDERS: ATTEND Internal Medicine
DX: Z12.31 Encounter for screening mammogram for malignant neoplasm of breast (principal); R92.333 Mammographic heterogeneous density, bilateral breasts